=== PATIENT | female | born 1950 | race Caucasian/White ===

== ENCOUNTER → 2017-02-11 | Outpatient (CLI) | payer OTHER ==
[~2017-02-11] MED LIST: FSMUNK; LVTUNK; NRNUNK; [UNRECOGNIZED DRUG - OTHER]; [UNRECOGNIZED DRUG - OTHER]
== END | disposition home or self-care (01) ==
LOC: C.PATHSPEC 17:50
PROVIDERS: ATTEND Urology
DX: N39.0 Urinary tract infection, site not specified (principal); N30.21 Other chronic cystitis with hematuria